=== PATIENT | female | born 1970 | race American Indian/Alaskan Native ===

== ENCOUNTER 2020-09-14 19:20 | Emergency (ER) | payer OTHER, SELFPAY ==
--- NOTE | 2020-09-14 19:30 | DI.CT.S_ITS ---
PROCEDURE: CT HEAD/BRAIN WO CON INDICATIONS: fall with head injury, possible LOC, nausea, aspirin TECHNIQUE: Noncontrast 4.5 mm thick angled axial sections acquired from the foramen magnum to the vertex, with coronal and sagittal reformats. For radiation dose reduction, the following was used: automated exposure control, adjustment of mA and/or kV according to patient size. COMPARISON: [facility], CT, CT FACIAL BONES WO CON, 09/14/2020, 19:38. FINDINGS: Image quality: Excellent. CSF spaces: Basal cisterns are patent. No extra-axial fluid collections. Ventricles are normal in size and shape. Brain: No intracranial hemorrhage, mass, or mass effect. Banks-white matter interface appears preserved. Skull and face: Calvarium appears intact. The visualized facial bones demonstrate mildly depressed and comminuted nasal bone fractures bilaterally. Sinuses: Visualized sinuses and mastoids are clear. IMPRESSION: 1. No acute intracranial abnormality. 2. Mildly depressed and comminuted nasal bone fractures partially visualized bilaterally. Recommend correlation with concurrent study of the facial bones. Dictated by: Bert Adorno M.D. on 09/14/2020 at 19:50 Approved by: Bert Adorno M.D. on 09/14/2020 at 19:52
--- NOTE | 2020-09-14 19:30 | DI.CT.S_ITS ---
PROCEDURE: CT CERVICAL SPINE WO CON INDICATIONS: fall with mild midline neck pain TECHNIQUE: Noncontrast 3 mm thick sections acquired from the skull base to the T4 level. Sagittal and coronal reformats were then constructed. For radiation dose reduction, the following was used: automated exposure control, adjustment of mA and/or kV according to patient size. COMPARISON: None. FINDINGS: Image quality: Excellent. Bones: No fractures or subluxation. There is straightening of the cervical lordosis with minimal anterolisthesis at C3-C4. There is moderate to severe facet arthropathy in the upper cervical spine on the left. Visualized superior ribs are intact. Soft tissues: Prevertebral soft tissues are normal in thickness. No paravertebral hematomas. No apical pneumothoraces. IMPRESSION: 1. No fracture or subluxation. 2. Straightening of the cervical lordosis with minimal anterolisthesis at C3-C4 likely secondary to degenerative changes. 3. Left predominant moderate to severe facet arthropathy in the upper cervical spine. Dictated by: Bert Adorno M.D. on 09/14/2020 at 19:58 Approved by: Bert Adorno M.D. on 09/14/2020 at 20:02
--- NOTE | 2020-09-14 19:30 | DI.CT.S_ITS ---
PROCEDURE: CT FACIAL BONES WO CON INDICATIONS: fall with facial injury TECHNIQUE: Noncontrast 2.5 mm thick axial images acquired from the mandible through the frontal sinuses, with coronal and sagittal reformatting. For radiation dose reduction, the following was used: automated exposure control, adjustment of mA and/or kV according to patient size. COMPARISON: [facility], CT, CT HEAD/BRAIN WO CON, 09/14/2020, 19:38. FINDINGS: Image quality: Excellent. Bones and teeth: There are mildly comminuted nasal bone fractures bilaterally with mild depression on the left by approximately 2 mm. The bony nasal septum appears intact with slight leftward deviation. Orbital yip are intact. Sinus yip show no fracture or deformity. Visualized portions of the mandible demonstrate no fractures or subluxation. Zygomatic arches are intact. Pterygoid plates are intact. Visualized portions of the skull base and auditory canals are intact. Sinuses: Paranasal sinuses are aerated, without fluid levels, mucosal thickening, or mucoceles. Mastoid air cells are aerated. Soft tissues: There is soft tissue swelling overlying the nasal bones. The globes appear intact within the orbits. No intraorbital fluid collections. Vascular: Visualized vascular structures appear normal in the absence of contrast. Bony vascular foramina and canals are intact. IMPRESSION: 1. Mildly comminuted bilateral nasal bone fractures with mild depression on the left. Dictated by: Bert Adorno M.D. on 09/14/2020 at 19:52 Approved by: Bert Adorno M.D. on 09/14/2020 at 19:57
[2020-09-14 19:35] VITALS: BP 161/68; PULSE 60; RESP 20; O2SAT 97; BMI 39.3
--- NOTE | 2020-09-14 20:06 | ED_ITS ---
HPI - Head Injury General Chief complaint: Head Injury Stated complaint: head, facial injury Time Seen by Provider: 09/14/20 19:24 Source: patient and family Mode of arrival: Ambulatory Limitations: no limitations History of Present Illness HPI Narrative: 50-year-old female nonsmoker with noncontributory medical history presents with her for evaluation of injuries suffered when she tripped and fell attempting to get on her boat. She fell forward because she lost her footing and struck the left side of her scalp as well as the bridge of her nose. She denies loss of consciousness nor nausea or vomiting. She takes no blood thinners. She denies any blurred vision or trouble with speech. She has full recall of the event. She denies any back pain or extremity injuries such as numbness, tingling or weakness. Her tetanus is up-to-date. Related Data Allergies Allergy/AdvReac Type Severity Reaction Status Date / Time Penicillins Allergy Verified 09/14/20 19:35 Review of Systems Review of Systems Narrative: GENERAL: Denies chills, fatigue, malaise, fever, sweats. HEENT: See HPI RESPIRATORY: Denies dyspnea, cough, wheezing, hemoptysis, sputum. CARDIOVASCULAR: Denies chest pain, palpitations, orthopnea, edema, GASTROINTESTINAL: Denies nausea, vomiting, abdominal pain, diarrhea, constipation, melena. : Denies dysuria, frequency, incontinence, hematuria, urinary retention. MUSCULOSKELETAL: denies weakness, joint pain, or bony pain SKIN: Denies rash, skin lesions, or other NEUROLOGIC: Denies weakness, headache, numbness, change in speech, confusion, seizures, incoordination. PSYCHIATRIC: No concerning psychosocial issues. 12 point review of systems is negative except for those stated above Patient History Social History Smoking Status: Never smoker Smoking Status: Never smoker Substance Use Type: does not use Exam Narrative Exam Narrative: GENERAL: [50] year old patient appears stated age. Well- developed patient, in mild distress. GCS 15 HEAD: 2 cm laceration with minimal bleeding in the left parietal region, no evidence of depressed skull fracture. EYES: Pupils equal round and reactive. Extraocular motions intact. No scleral icterus. No injection or drainage. ENT: Pain and swelling on bridge of nose with very small, 0.25 laceration. Dried and fresh clots in bilateral nares, no nasal septal hematoma.. Throat without erythema, tonsillar hypertrophy or exudate. Airway patent. NECK: Trachea midline. Non tender CARDIOVASCULAR: Regular rate and rhythm without murmurs, gallops, or rubs. RESPIRATORY: Clear to auscultation. Breath sounds equal bilaterally. No wheezes, rales, or rhonchi. GASTROINTESTINAL: Abdomen soft, non-tender, nondistended. EXTREMITIES: No edema or joint tenderness. BACK: Nontender without deformity or crepitance. No flank tenderness. NEURO: AOx3. SKIN: No rash or erythema of visible areas Initial Vital Signs Initial Vital Signs: Vital Signs Pulse Rate 60 09/14/20 19:35 Respiratory Rate 20 09/14/20 19:35 Blood Pressure 161/68 H 09/14/20 19:35 Pulse Oximetry 97 09/14/20 19:35 Procedures Laceration Repair Laceration 1: Site: scalp Side (If applicable): left Size (cm): 2 Depth: simple, single layer Local Anesthetic: lidocaine 1% and with epi Amount of anesthesia used (mL): 4 Pre-repair: wound explored and irrigated extensively Skin layer closed with: felice Number of sutures: 4 Course Orders Ordered: Discontinued Medications Hydrocodone Bitart/Acetaminophen (Hydrocodone/Acet 5/325 Prepack) [facility] Stop: 09/14/20 21:26 Last Admin: 09/14/20 21:37 Dose: 1 bottle Documented by: [email or web address] Cyclobenzaprine HCl (Cyclobenzaprine 10 Mg Prepack) 1 bottle MISC SEEINSTR ONE Stop: 09/14/20 21:26 Last Admin: 09/14/20 21:37 Dose: 1 bottle Documented by: [email or web address] Lidocaine/Epinephrine (Lidocaine 1% W/Epi) 1 ml SUBCUT NOW ONE Stop: 09/14/20 19:31 Last Admin: 09/14/20 21:38 Dose: 1 ml Documented by: [email or web address] Vital Signs Vital signs: Vital Signs - 8 hr 09/14/20 21:30 Pulse Rate 60 Respiratory Rate 14 Blood Pressure 141/75 H Pulse Oximetry 100 MDM - Head Injury Imaging Data CT scan - head: Radiologist's Impression: [address] [id number] Scan ReportSigned Patient: Katja Horton AMR#: [id number]: 1970Acct:[id number]/Sex: 50 / FDate of Service: 09/14/20Loc: EDAccession Number: [id number] Procedure: CT head/brain wo con Ordering Provider: Grayson Foster D.O. PROCEDURE: CT HEAD/BRAIN WO CON INDICATIONS: fall with head injury, possible LOC, nausea, aspirin TECHNIQUE: Noncontrast 4.5 mm thick angled axial sections acquired from the foramen magnum to the vertex, with coronal and sagittal reformats. For radiation dose reduction, the following was used: automated exposure control, adjustment of mA and/or kV according to patient size. COMPARISON: [facility], CT, CT FACIAL BONES WO CON, 09/14/2020, 19:38. FINDINGS: Image quality: Excellent. CSF spaces: Basal cisterns are patent. No extra-axial fluid collections. Ventricles are normal in size and shape. Brain: No intracranial hemorrhage, mass, or mass effect. Banks-white matter interface appears preserved. Skull and face: Calvarium appears intact. The visualized facial bones demonstrate mildly depressed and comminuted nasal bone fractures bilaterally. Sinuses: Visualized sinuses and mastoids are clear. IMPRESSION: 1. No acute intracranial abnormality. 2. Mildly depressed and comminuted nasal bone fractures partially visualized bilaterally. Recommend correlation with concurrent study of the facial bones. Dictated by: Bert Adorno M.D. on 09/14/2020 at 19:50 Approved by: Bert Adorno M.D. on 09/14/2020 at 19:52 CT Facial Bones: Radiologist's Impression: Katja Horton A 50 F [address] [id number] Scan ReportSigned Patient: Katja Horton AMR#: [id number]: 1970Acct:[id number]/Sex: 50 / FDate of Service: 09/14/20Loc: EDAccession Number: [id number] Procedure: CT facial bones wo con Ordering Provider: Grayson Foster D.O. PROCEDURE: CT FACIAL BONES WO CON INDICATIONS: fall with facial injury TECHNIQUE: Noncontrast 2.5 mm thick axial images acquired from the mandible through the frontal sinuses, with coronal and sagittal reformatting. For radiation dose reduction, the following was used: automated exposure control, adjustment of mA and/or kV according to patient size. COMPARISON: [facility], CT, CT HEAD/BRAIN WO CON, 09/14/2020, 19:38. FINDINGS: Image quality: Excellent. Bones and teeth: There are mildly comminuted nasal bone fractures bilaterally with mild depression on the left by approximately 2 mm. The bony nasal septum appears intact with slight leftward deviation. Orbital yip are intact. Sinus yip show no fracture or deformity. Visualized portions of the mandible demonstrate no fractures or subluxation. Zygomatic arches are intact. Pterygoid plates are intact. Visualized portions of the skull base and auditory canals are intact. Sinuses: Paranasal sinuses are aerated, without fluid levels, mucosal thickening, or mucoceles. Mastoid air cells are aerated. Soft tissues: There is soft tissue swelling overlying the nasal bones. The globes appear intact within the orbits. No intraorbital fluid collections. Vascular: Visualized vascular structures appear normal in the absence of contrast. Bony vascular foramina and canals are intact. IMPRESSION: 1. Mildly comminuted bilateral nasal bone fractures with mild depression on the left. Dictated by: Bert Adorno M.D. on 09/14/2020 at 19:52 Approved by: Bert Adorno M.D. on 09/14/2020 at 19:57 CT - cervical spine: Radiologist's Impression: Katja Horton Marisa 50 F [address] Scan ReportSigned Patient: Katja Horton AMR#: [id number]: 1970Acct:[id number]/Sex: 50 / FDate of Service: 09/14/20Loc: EDAccession Number: [id number] Procedure: CT cervical spine wo con Ordering Provider: Grayson Foster D.O. PROCEDURE: CT CERVICAL SPINE WO CON INDICATIONS: fall with mild midline neck pain TECHNIQUE: Noncontrast 3 mm thick sections acquired from the skull base to the T4 level. Sagittal and coronal reformats were then constructed. For radiation dose reduction, the following was used: automated exposure control, adjustment of mA and/or kV according to patient size. COMPARISON: None. FINDINGS: Image quality: Excellent. Bones: No fractures or subluxation. There is straightening of the cervical lordosis with minimal anterolisthesis at C3-C4. There is moderate to severe facet arthropathy in the upper cervical spine on the left. Visualized superior ribs are intact. Soft tissues: Prevertebral soft tissues are normal in thickness. No paravertebral hematomas. No apical pneumothoraces. IMPRESSION: 1. No fracture or subluxation. 2. Straightening of the cervical lordosis with minimal anterolisthesis at C3-C4 likely secondary to degenerative changes. 3. Left predominant moderate to severe facet arthropathy in the upper cervical spine. Dictated by: Bert Adorno M.D. on 09/14/2020 at 19:58 Approved by: Bert Adorno M.D. on 09/14/2020 at 20:02 Discharge Plan Departure Patient Disposition: Home Clinical Impression: Closed fracture nasal bone Qualifiers: Encounter type: initial encounter Qualified Code(s): S02.2XXA - Fracture of nasal bones, initial encounter for closed fracture Laceration of scalp Qualifiers: Encounter type: initial encounter Qualified Code(s): S01.01XA - Laceration without foreign body of scalp, initial encounter Laceration of nose Qualifiers: Encounter type: initial encounter Qualified Code(s): S01.21XA - Laceration without foreign body of nose, initial encounter Instructions: DI for Nose Fracture, DI for Laceration Repair of the Scalp Activity Restrictions/Additional Instructions: *You have been diagnosed with [fall with nasal fracture, scalp laceration] *What to do: *Please continue to take your regular medications as directed. [ ] New medication prescriptions sent to your pharmacy: [ ] [ ] New medication written as a paper prescription [ ] Hydrocodone and cyclobenzaprine prepacks * Please keep the wound clean and dry to the best of your ability. Please monitor for signs of infection such as redness to the skin or increasing pain. Have the sutures removed by your doctor in about 7 days. If you are unable to get into your doctor, we would be happy to remove the sutures in that same timeframe. *If you do not have a primary care provider please contact the [facility] Resource line at [phone]. They will ask some questions about your medical history and help get you set up with a doctor in the community. *Return to Emergency Department if you should have any new, worsening or conc erning symptoms, such as [fever greater than 101 F, shaking chills, worsening pain, persistent vomiting or other bothersome symptoms] Referrals: [facility] Resources [Outside] Dano Abernathy MD [Physician] -
[2020-09-14 21:30] VITALS: BP 141/75; PULSE 60; RESP 14; O2SAT 100
[2020-09-14] MEDS: CYCLOBENZAPRINE 10 MG PREPACK 1 BOTTLE MISC (21:37)
[2020-09-14] MEDS: HYDROCODONE/ACET 5/325 PREPACK 1 BOTTLE MISC (21:37)
[2020-09-14] MEDS: LIDOCAINE 1% W/EPI 1 ML SUBCUT (21:38)
== END 2020-09-14 21:43 | disposition home or self-care (01) ==
PROVIDERS: Emergency Provider Emergency Medicine
DX: S02.2XXA Fracture of nasal bones, initial encounter for closed fracture (principal); S01.01XA Laceration without foreign body of scalp, initial encounter; S01.21XA Laceration without foreign body of nose, initial encounter; R11.0 Nausea; W19.XXXA Unspecified fall, initial encounter
CPT/HCPCS: 12001; 70450; 70486; 72125; 99281; 99284